=== PATIENT | female | born 1955 | race African-American/Black ===

== ENCOUNTER 2020-02-08 16:39 | Inpatient (IN) | payer MEDICARE, MEDICAID ==
[~2020-02-08] VITALS: Ht 162.6 cm; Wt 64.9 kg
[~2020-02-08 16:39] MED LIST: CLON0.2T PO; LOSA50TA3 PO; METH5TAB2 PO; TRAM50TA3 PO
[2020-02-08] MEDS ORDERED: SODIUM CHLORIDE 0.9% 1,000 ML IV ONE (20:44)
[2020-02-08 21:01] LABS: BASOPHILS % 0.9 % (0.0-2.0); EOSINOPHILS % 1.4 % (0.0-5.0); HEMATOCRIT. 30.6 % (36.0-48.0); HEMOGLOBIN. 10.2 g/dL (12.0-16.0); MEAN CORPUSCULAR HEMOGLOBIN 29.9 pg (28.0-32.0); MEAN CORPUSCULAR VOLUME 89.6 fL (81.0-99.0); MONOCYTES % 6.9 % (2.0-8.0); NEUTROPHILS % 54.8 % (40.0-76.0); PLATELET 268 x1000/uL (130-400); RED BLOOD CELL COUNT 3.41 mill/uL (4.2-5.4); RED CELL DISTRIBUTION WIDTH 16.8 % (11.6-14.6)
[2020-02-08 21:03] LABS: CHLORIDE 101 mEq/L (98-107)
[2020-02-08 21:07] LABS: PROTHROMBIN TIME 10.7 sec (9.6-11.0)
[2020-02-08] MEDS ORDERED: KETOROLAC 15MG/ML VIAL IV NR (22:15)
[2020-02-09] MEDS ORDERED: MORPHINE SULFATE 2 MG/ML CPJ (NOT FOR IM USE) IV PRN ×2 (08:15→16:00)
[2020-02-09 10:00] VITALS: BP 140/60
[2020-02-09] MEDS ORDERED: ONDANSETRON HCL 4MG/2ML INJ IV PRN (10:45)
[2020-02-09] MEDS ORDERED: ACETAMINOPHEN 325MG TABLET PO PRN (10:45)
[2020-02-09 11:44] VITALS: BP 118/45
[2020-02-09] MEDS: HYDROCODONE/ACETAMINOPHEN 5/325MG TABLET PO PRN ×2 (11:51→15:55)
[2020-02-09] MEDS: ENOXAPARIN 40MG/0.4ML SYR SUBCUT SCH (11:52)
[2020-02-09 16:55] VITALS: BP 103/62
[2020-02-09 17:00] LABS: CLARITY URINE CLEAR (CLEAR); COLOR URINE DARK YELLOW (YELLOW); KETONES URINE TRACE (NEGATIVE); LEUKOCYTE ESTERASE URINE 3+ (NEGATIVE); NITRITE URINE NEGATIVE (NEGATIVE); OCCULT BLOOD URINE NEGATIVE (NEGATIVE); PROTEIN URINE 1+ (NEGATIVE); SPECIFIC GRAVITY URINE 1.019 (1.005-1.030); UROBILINOGEN URINE 0.2 E.U./dL (0.2-1.0)
[2020-02-09 20:00] VITALS: BP 121/50
[2020-02-10] VITALS: BP 145/52
[2020-02-10] MEDS: HYDROCODONE/ACETAMINOPHEN 5/325MG TABLET PO PRN (02:16)
[2020-02-10] MEDS ORDERED: POTASSIUM CHLORIDE INJ 10 MEQ in SODIUM CHLORIDE 0.9% 1,000 ML IV SCH (07:00)
[2020-02-10 08:00] VITALS: BP 199/83
[2020-02-10] MEDS: CLONIDINE 0.1MG TABLET PO PRN ×2 (09:51→20:51)
[2020-02-10] MEDS: AMLODIPINE 10MG TABLET PO SCH (09:51)
[2020-02-10 12:00] VITALS: BP_SYST 164; BP_SYST 198; BP_DIAS 64; BP_DIAS 68
[2020-02-10] MEDS: DEXT 5%/0.45% NACL 1000ML 1,000 ML IV SCH (12:54)
[2020-02-10] MEDS: ENOXAPARIN 40MG/0.4ML SYR SUBCUT SCH (12:54)
[2020-02-10] MEDS: CEFTRIAXONE 1 G PREMIX 50 ML IV SCH (12:58)
[2020-02-10 16:00] VITALS: BP 198/64
[2020-02-10 17:02] LABS: BASOPHILS % 0.8 % (0.0-2.0); EOSINOPHILS % 0.8 % (0.0-5.0); HEMATOCRIT. 27.4 % (36.0-48.0); LYMPHOCYTES % 22.7 % (20.0-50.0); MEAN CORPUSCULAR HEMOGLOBIN 29.9 pg (28.0-32.0); MEAN CORPUSCULAR VOLUME 90.8 fL (81.0-99.0); MEAN PLATELET VOLUME 9.2 fl (7.4-10.4); MONOCYTES % 6.9 % (2.0-8.0); NEUTROPHILS % 68.8 % (40.0-76.0); PLATELET 260 x1000/uL (130-400); RED BLOOD CELL COUNT 3.02 mill/uL (4.2-5.4); RED CELL DISTRIBUTION WIDTH 16.7 % (11.6-14.6)
[2020-02-10 17:22] LABS: CHLORIDE 105 mEq/L (98-107)
[2020-02-10 20:00] VITALS: BP 179/77
[2020-02-11] VITALS (7 sets, daily range): BP systolic 140–185; BP diastolic 63–82
[2020-02-11] MEDS: DEXT 5%/0.45% NACL 1000ML 1,000 ML IV SCH ×2 (00:28→13:43)
[2020-02-11] MEDS: CLONIDINE 0.1MG TABLET PO PRN (04:33)
[2020-02-11] MEDS ORDERED: POTASSIUM CHLORIDE 20MEQ TABLET SR PO NR (08:51)
[2020-02-11] MEDS: AMLODIPINE 10MG TABLET PO SCH (09:03)
[2020-02-11] MEDS: ENOXAPARIN 40MG/0.4ML SYR SUBCUT SCH (11:01)
[2020-02-11] MEDS ORDERED: LOSARTAN POTASSIUM 50 MG TABLET PO NR (11:30)
[2020-02-11] MEDS: CEFTRIAXONE 1 G PREMIX 50 ML IV SCH (12:21)
[2020-02-12] MEDS ORDERED: LOSARTAN POTASSIUM 50 MG TABLET PO SCH (09:00)
[2020-02-12] MEDS ORDERED: CEFTRIAXONE 1,000 MG in DEXTROSE 5% WATER 50 ML IV SCH (13:00)
== END 2020-02-11 21:57 | disposition home health service (06) | DRG 463 ==
LOC: ER 16:39 → 7WST 02-09 00:05 → EDBEDREQSVC 02-09 08:02 → EDBEDREQTM 02-09 08:02 → ENRESERV 02-09 08:07 → 8WST 02-10 06:04
PROVIDERS: ADMIT Internal Medicine; ATTEND Internal Medicine
DX: N39.0 Urinary tract infection, site not specified (principal); E87.1 Hypo-osmolality and hyponatremia; Z99.3 Dependence on wheelchair; E86.0 Dehydration; G40.909 Epilepsy, unspecified, not intractable, without status epilepticus; E44.1 Mild protein-calorie malnutrition; I10 Essential (primary) hypertension; S50.311A Abrasion of right elbow, initial encounter; L89.324 Pressure ulcer of left buttock, stage 4; G82.20 Paraplegia, unspecified; B19.20 Unspecified viral hepatitis C without hepatic coma; D64.9 Anemia, unspecified; R74.0 Nonspecific elevation of levels of transaminase and lactic acid dehydrogenase [LDH]; S80.212A Abrasion, left knee, initial encounter; S80.211A Abrasion, right knee, initial encounter; X58.XXXA Exposure to other specified factors, initial encounter; Y93.89 Activity, other specified; Z79.899 Other long term (current) drug therapy; Y92.89 Other specified places as the place of occurrence of the external cause; Y99.8 Other external cause status; Z03.818 Encounter for observation for suspected exposure to other biological agents ruled out; L89.313 Pressure ulcer of right buttock, stage 3
CPT/HCPCS: 36415; 71045; 80048; 80053; 81003; 82962; 85025; 93005; 97162; 99285; J0696; J1650; J1885; J2270; J3480; J7030; J7060; U0003-CS